=== PATIENT | female | born 1970 | race Caucasian/White ===

== ENCOUNTER 2020-03-10 20:18 | Emergency (ER) | payer SELFPAY ==
--- NOTE | 2020-03-10 20:15 | ECG_ITS ---
APPROVED REPORT Exam: Resting ECG HR:70 bpm ECG Measurements Heart Rate 70 AXES IN 190 P 32 QRSd 80 QRS 56 QT 398 T 68 QTc 429 <Conclusion> Normal sinus rhythm Low voltage QRS Borderline ECG Electronically signed by : Jose Francisco Villanueva, 03/14/2020 13:59:34
[2020-03-10 20:21] VITALS: BP 116/78; PULSE 73; RESP 18; TEMP 36.6; O2SAT 96; BMI 32.9
[2020-03-10 20:25] VITALS: BP 116/78; PULSE 75; RESP 18; O2SAT 96
--- NOTE | 2020-03-10 20:33 | XR_ITS ---
PROCEDURE: XR CHEST 2V CLINICAL HISTORY: chest pain COMPARISON: No exams were available for comparison FINDINGS: The cardiomediastinal silhouette and pulmonary vascularity are within normal limits. The lungs are clear without infiltrates, suspicious nodules, or pleural effusions. No acute bony abnormalities. IMPRESSION: No acute findings. Dictated by: Anuj Strickland MD 03/11/2020 07:40 Electronically signed by Anuj Strickland MD in [facility] 03/11/2020 07:40
--- NOTE | 2020-03-10 20:47 | CT_ITS ---
PROCEDURE: CT ABDOMEN PELVIS W CON CLINICAL INDICATION: epigatric pain Abdominal pain, epigastric pain COMPARISON: No exams were available for comparison TECHNIQUE: IV Contrast: 75ML OPTIRAY 350 Oral Contrast None Axial images obtained with sagittal and coronal reformats. All CT scans at the facility use one or more dose reduction, viz: automated exposure control, ma/kV adjustment per patient size (including targeted exams where dose is matched to indication, i.e. head), or iterative reconstruction technique. FINDINGS: LOWER THORAX: No acute finding ABDOMEN & PELVIS: Post cholecystectomy. The liver, spleen, right adrenal gland, and pancreas have an unremarkable appearance. No renal or ureteral calculi. No hydronephrosis. There is nodular enlargement of the left adrenal gland possibly due to adenomatous involvement. Unenhanced exam or MRI may confirm. No evidence of appendicitis. No intestinal obstruction or free air. There is prominent periuterine venous engorgement and may be seen with pelvic congestion syndrome. There are scattered colonic diverticula but no evidence of diverticulitis. IMPRESSION: 1. No acute finding. 2. Colonic diverticulosis without diverticulitis. 3. Prominent adnexal veins nonspecific but may be seen with pelvic congestion syndrome 4. Mildly enlarged left adrenal gland Dictated by: Anuj Strickland MD 03/11/2020 08:38 Electronically signed by Anuj Strickland MD in [facility] 03/11/2020 08:38
[2020-03-10 20:51] LABS: Basophils # 0.1 K/mm3 (0-0.2); Basophils % 0.6 % (0.1-2.0); Eosinophils # 0.3 K/mm3 (0.0-0.4); Eosinophils % 2.1 % (0.1-12.0); Hematocrit 39.4 % (37.0-47.0); Hemoglobin 13.9 g/dL (12.2-16.2); Lymphocytes # 3.1 K/mm3 (0.7-4.5); Lymphocytes % 23.9 % (10-50); Mean Corpuscular HGB Conc 35.3 g/dL (31.8-35.4); Mean Corpuscular Hemoglobin 32.7 pg (27.0-31.2); Mean Corpuscular Volume 92.5 fl (81-99); Mean Platelet Volume 8.2 fl (7.4-10.4); Monocytes # 0.6 K/mm3 (0.1-1.0); Monocytes % 4.2 % (1.7-9.3); Neutrophils # 9.1 K/mm3 (1.8-7.8); Neutrophils % 69.2 % (37.0-80.0); Platelet Count 305 K/mm3 (142-424); Red Blood Count 4.26 M/mm3 (4.20-5.40); Red Cell Distribution Width 13.9 % (11.5-17.5); White Blood Count 13.1 K/mm3 (4.8-10.8)
[2020-03-10 20:54] LABS: Chloride 110 mmol/L (98-107); Potassium 3.4 mmoL/L (3.5-5.1); Sodium 138 mmol/L (136-145)
[2020-03-10 20:57] LABS: Alanine Aminotransferase 36 U/L (12-78); Albumin Level 3.9 g/dl (3.5-5.0); Alkaline Phosphatase 99 U/L (38-126); Amylase 58 U/L (30-110); Anion Gap 11.4 mEq/L (5-15); Aspartate Amino Transferase 30 U/L (14-36); Bilirubin,Direct 0.1 mg/dl (0.0-0.4); Bilirubin,Indirect 0.3 mg/dL (0.0-0.9); Bilirubin,Total 0.4 mg/dl (0.2-1.3); Bilirubin,Unconjugated 0.2 mg/dL (0.0-1.1); Blood Urea Nitrogen 12 mg/dl (7-17); Calcium 9.6 mg/dl (8.4-10.2); Carbon Dioxide 20 mmol/L (22.0-30.0); Creatinine Clearance Estimated 123 mL/min (50-200); Estimated Glomerular Filt Rate 88 ml/min (>60); GFR (African American) 107 ML/MIN (>60); Glucose 118 mg/dl (74-100); Lipase 57 U/L (23-300); Total Protein,Serum 7.3 g/dl (6.3-8.2)
--- NOTE | 2020-03-10 21:03 | CT_ITS ---
PROCEDURE: CT HEAD/BRAIN WO CON CLINICAL INDICATION: dizzieness Dizziness COMPARISON: No exams were available for comparison TECHNIQUE: Axial images obtained. All CT scans at the facility use one or more dose reduction, viz: automated exposure control, ma/kV adjustment per patient size (including targeted exams where dose is matched to indication, i.e. head), or iterative reconstruction technique. FINDINGS: No midline shift, mass effect, intracranial hemorrhage, hydrocephalus, or extra-axial fluid collection is evident. The calvarium has an unremarkable appearance. Minimal opacification right posterior mastoid air cell. No sinus air-fluid level. IMPRESSION: No acute intracranial finding Dictated by: Anuj Strickland MD 03/11/2020 08:33 Electronically signed by Anuj Strickland MD in [facility] 03/11/2020 08:33
--- NOTE | 2020-03-10 21:05 | CT_ITS ---
PROCEDURE: CT ANGIO CHEST CLINCIAL INDICATION: chest pain Chest pain with shortness of breath, smoker COMPARISON: No exams were available for comparison TECHNIQUE: IV Contrast: 70ML OPTIRAY 350 Axial images obtained with sagittal and coronal reformats. All CT scans at the facility use one or more dose reduction, viz: automated exposure control, ma/kV adjustment per patient size (including targeted exams where dose is matched to indication, i.e. head), or iterative reconstruction technique. FINDINGS: HEART AND MEDIASTINAL STRUCTURES: No evidence of pulmonary embolus aortic aneurysm or dissection. LUNGS AND PLEURAL SPACES: In the right apex there is an 8 mm noncalcified nodule and a 5 mm noncalcified nodule. There is a subpleural 4 mm nodule in the left apex and a 4 mm nodule in the left upper lobe centrally image 25 series 4. There are few calcified nodules as well. There is mild atelectatic change in the lung bases. 5 mm subpleural opacity is present in the major fissure on the left. 3 mm noncalcified nodule left upper lobe posteriorly image 22 series 4. No effusions. No lobar consolidation BONY STRUCTURES: No acute bony abnormalities apparent. UPPER ABDOMEN: Enlargement of the left adrenal gland is noted and may be due to adenomatous involvement incompletely imaged ADDITIONAL FINDINGS: There are few scattered small axillary lymph nodes IMPRESSION: 1. No evidence of pulmonary embolus or aortic aneurysm or dissection. 2. Scattered pulmonary nodules as detailed above the largest in the right apex at 8 mm. Recommend six-month follow-up Dictated by: Anuj Strickland MD 03/11/2020 08:31 Electronically signed by Anuj Strickland MD in [facility] 03/11/2020 08:31
--- NOTE | 2020-03-10 21:07 | PC.NURSE ---
pt had no relief from nitro
[2020-03-10 21:11] LABS: Troponin I 0.03 ng/ml (0.00-0.034)
[2020-03-10 21:31] LABS: Erythrocyte Sedimentation Rate 70 mm/hr (0-30)
[2020-03-10 21:43] VITALS: BP 133/87; PULSE 84; RESP 18; O2SAT 98
--- NOTE | 2020-03-10 21:48 | [facility].EDCP ---
ED Disposition Clinical Impression: Elevated erythrocyte sedimentation rate, Obesity (BMI 30.0-34.9) Chest pain Qualifiers: Chest pain type: precordial pain Qualified Code(s): R07.2 - Precordial pain Disposition: Home, Self-Care Condition on Discharge: Good Instructions: DI for Chest Pain Additional Instructions: see card this week for follow up and also pcp Referrals: Provider,Referral, MD [Primary Care Provider] - - Critical Care Critical Care Time: No Attestation: On , the high probability of a clinically significant, sudden or life threatening deterioration of the following system(s) required my full and direct attention, intervention and personal management. The time I documented below is in addition to time spent performing reported procedures but includes the following listed in this critical care notation. Medical Decision Making - Medical Records Medical records reviewed: Yes: I reviewed the patient's medical records. - [place] Inquiry Pt receiving controlled substance: No Vital Signs: 03/10/20 20:21 03/10/20 20:25 03/10/20 21:43 Temperature 97.9 F Temperature Source Oral Pulse Rate [Left Radial] 75 84 Pulse Rate [Right] 73 Respiratory Rate 18 18 18 Blood Pressure [Right Arm] 116/78 116/78 133/87 Blood Pressure Mean [Right Arm] 90 90 102 Blood Pressure Source [Right Arm] Automatic Cuff Blood Pressure Position [Right Arm] Supine 02 Sat by Pulse Oximetry 96 96 98 Oxygen Delivery Method Room Air Room Air Room Air 03/10/20 22:32 03/10/20 23:05 Temperature Temperature Source Pulse Rate [Left Radial] 68 75 Pulse Rate [Right] Respiratory Rate 18 18 Blood Pressure [Right Arm] 126/87 145/74 H Blood Pressure Mean [Right Arm] 100 97 Blood Pressure Source [Right Arm] Blood Pressure Position [Right Arm] 02 Sat by Pulse Oximetry 93 L 95 Oxygen Delivery Method Room Air Room Air - Lab Data Lab results reviewed: Yes: I reviewed the patient's lab results. Lab Results 03/10/20 20:43: WBC 13.1 H, RBC 4.26, Hgb 13.9, Hct 39.4, MCV 92.5, MCH 32.7 H, MCHC 35.3, RDW 13.9, Plt Count 305, MPV 8.2, Neut % (Auto) 69.2, Lymph % (Auto) 23.9, [place] % (Auto) 4.2, Eos % (Auto) 2.1, Baso % (Auto) 0.6, Neut # (Auto) 9.1 H, Lymph # (Auto) 3.1, [place] # (Auto) 0.6, Eos # (Auto) 0.3, Baso # (Auto) 0.1, ESR 70 H 03/10/20 20:43: Sodium 138, Potassium 3.4 L, Chloride 110 H, Carbon Dioxide 20 L, Anion Gap 11.4, BUN 12, Creatinine 0.70, Estimated Creat Clear 123, Estimated GFR 88, Est GFR ( Amer) 107, Glucose 118 H, Calcium 9.6, Total Bilirubin 0.4, Direct Bilirubin 0.1, Conjugated Bilirubin 0.0, Indirect Bilirubin 0.3, Unconjugated Bilirubin 0.2, AST 30, ALT 36, Alkaline Phosphatase 99, Troponin I 0.03, C-Reactive Protein 9.0 H, Total Protein 7.3, Albumin 3.9, Amylase 58, Lipase 57 Result diagrams: 03/10/20 20:43 03/10/20 20:43 Orders (Tests/Meds): ED MEDICATIONS Generic Name Dose Route Start Last Admin Trade Name Freq PRN Reason Stop Dose Admin Sodium Chloride 1,000 mls @ 999 mls/hr 03/10/20 20:45 03/10/20 20:46 Sod Chlor 0.9% 1000ml Bag IV 03/10/20 21:45 999 mls/hr .Q1H1M FAUSTINO Administration Sodium Chloride 8 ml 03/10/20 20:47 Sodium Chloride 0.9% 10ml Vial IV 04/09/20 20:46 NEEDED PRN dilute pepcid Discontinued Medications Generic Name Dose Route Start Last Admin Trade Name Freq PRN Reason Stop Dose Admin Aspirin 324 mg 03/10/20 20:33 03/10/20 20:45 Aspirin 81mg Chewable Tablet PO 03/10/20 20:34 324 mg ONCE ONE Administration Famotidine 20 mg 03/10/20 20:47 03/10/20 20:51 Pepcid 20mg/2ml Vial IV 03/10/20 20:48 20 mg ONCE ONE Administration Ioversol 70 ml 03/10/20 21:42 03/10/20 21:43 Rad-Optiray 350 100ml Vial IV 03/10/20 21:43 70 ml ONCE ONE Administration Protocol Ketorolac Tromethamine 30 mg 03/10/20 20:47 03/10/20 20:51 Toradol 30mg/Ml Vial IV 03/10/20 20:48 30 mg ONCE ONE Administration M
[2020-03-10 22:32] VITALS: BP 126/87; PULSE 68; RESP 18; O2SAT 93
[2020-03-10 23:05] VITALS: BP 145/74; PULSE 75; RESP 18; O2SAT 95
[2020-03-11 00:13] LABS: Troponin I 0.48 ng/ml (0.00-0.034)
--- NOTE | 2020-03-11 00:19 | PC.NURSE ---
at the bedside reviewing pt lab information
[2020-03-11 00:20] VITALS: BP 122/86; PULSE 73; RESP 18; O2SAT 98
--- NOTE | 2020-03-11 00:25 | PC.NURSE ---
This nurse entered the room to have pt sign ama papers, per pt request. MD present at the bedside and explained to pt the risks and dangers of leaving against medical advice at this time due to lab results discussed with pt. Signs and symptoms explained to patient about on going diagnosis. Advised pt to return with any new or worsening symptoms. Pt agreed to return at 0900 to cardiology per MD recommendation. Explained to pt that this condition could be lethal and after all instructions were discussed with pt, she still wanted to leave ama home. Pt does still want to leave and signed ama paperwork. Md also present for signature.
[2020-03-11 00:30] VITALS: BP 122/86; PULSE 73; RESP 18; TEMP 36.6; O2SAT 98
== END 2020-03-11 00:30 | disposition home or self-care (01) ==
PROVIDERS: Emergency Provider Emergency Medicine
DX: I21.4 Non-ST elevation (NSTEMI) myocardial infarction (principal); F17.210 Nicotine dependence, cigarettes, uncomplicated; E66.8 Other obesity; Z68.32 Body mass index [BMI] 32.0-32.9, adult; R70.0 Elevated erythrocyte sedimentation rate
CPT/HCPCS: 70450; 71046; 71275; 74177; 80048; 80076; 82150; 83690; 84484; 85025; 85651; 86140; 93005; 96365; 96375; 99284; J2405; Q9967

== ENCOUNTER → 2021-10-01 11:48 | Outpatient (CLI) | payer MEDICAID, SELFPAY ==
[2021-10-01 15:01] LABS: Basophils # 0.2 K/mm3 (0-0.2); Basophils % 1.7 % (0.1-2.0); Eosinophils # 0.4 K/mm3 (0.0-0.4); Eosinophils % 4.1 % (0.1-12.0); Hematocrit 44.8 % (37.0-47.0); Hemoglobin 14.9 g/dL (12.2-16.2); Lymphocytes # 3.6 K/mm3 (0.7-4.5); Lymphocytes % 37.7 % (10-50); Mean Corpuscular HGB Conc 33.4 g/dL (31.8-35.4); Mean Corpuscular Hemoglobin 31.7 pg (27.0-31.2); Mean Corpuscular Volume 94.9 fl (81-99); Mean Platelet Volume 9.6 fl (7.4-10.4); Monocytes # 0.4 K/mm3 (0.1-1.0); Monocytes % 4.4 % (1.7-9.3); Neutrophils % 52.2 % (37.0-80.0); Platelet Count 399 K/mm3 (142-424); Red Blood Count 4.72 M/mm3 (4.20-5.40); Red Cell Distribution Width 13.7 % (11.5-17.5); White Blood Count 9.5 K/mm3 (4.8-10.8)
[2021-10-01 15:48] LABS: Anion Gap 12.6 mEq/L (5-15); Blood Urea Nitrogen 12 mg/dl (7-17); Calcium 9.7 mg/dl (8.4-10.2); Carbon Dioxide 28 mmol/L (22.0-30.0); Chloride 102 mmol/L (98-107); Estimated Glomerular Filt Rate 88 ml/min (>60); GFR (African American) 106 ML/MIN (>60); Glucose 86 mg/dl (74-100); Potassium 4.6 mmoL/L (3.5-5.1); Sodium 138 mmol/L (136-145)
== END ==
PROVIDERS: PCP Family Medicine; Visit Provider Physician Assistant
DX: Z01.812 Encounter for preprocedural laboratory examination (principal); Z11.52 Encounter for screening for COVID-19; R06.02 Shortness of breath; I20.0 Unstable angina; I10 Essential (primary) hypertension; I25.2 Old myocardial infarction; I63.9 Cerebral infarction, unspecified; F17.200 Nicotine dependence, unspecified, uncomplicated; E66.9 Obesity, unspecified; Z68.34 Body mass index [BMI] 34.0-34.9, adult
CPT/HCPCS: 36415; 80048; 85025; C9803; U0003; U0005

== ENCOUNTER 2021-10-03 08:20 | Day surgery (SDC) | payer MEDICAID, SELFPAY ==
[2021-10-03] VITALS (12 sets, daily range): BP systolic 108–159; BP diastolic 78–109; PULSE 75–91; RESP 16–20; TEMP 36.7–37; O2SAT 90–97; BMI 34.4
--- NOTE | 2021-10-03 07:06 | IR_ITS ---
APPROVED REPORT Patient Location: Outpatient PROCEDURES Left heart catheterization Left ventriculogram Selective coronary angiogram INDICATION Recent non-ST elevation myocardial infarction, Coronary artery disease, Recurrent angina pectoris Informed consent was obtained prior to the procedure. COMPLICATIONS NONE Estimated Blood Loss: LESS THAN 10 ML TECHNIQUE One percent lidocaine used to anesthetize the right anterior aspect of the wrist. The right radial artery was accessed via the Seldinger technique. A 6 Bulgarian sheath was placed in the right radial artery. 2.5 mg of verapamil, 800 mcg of nitroglycerin, 1mg Lidocaine and 5000 U Heparin were given through the arterial sheath. The ViClonepa catheter was also used to perform left heart catheterization, left ventriculogram and selective coronary angiogram. At the end of the procedure the apparatus was removed the sheath was removed and hemostasis was achieved using TR banding patient was transferred to the postop holding area in stable condition ANGIOGRAPHIC RESULTS The left main artery Normal The left anterior descending artery Has mild proximal and mid vessel 10% luminal irregularities The circumflex artery Is a dominant vessel and has mid vessel 20 and 30% stenoses. The distal obtuse marginal artery branches have 30 and 40% stenosis a bifurcating area is. The right coronary artery Is nondominant and subtotally occluded in the midsegment and distally occluded. There are scant [id number] collaterals The BAIRD ventriculogram reveals Normal slightly hyperdynamic at 70% The left ventricular end-diastolic pressure 10 mmHg IMPRESSION Coronary disease as described above most notably with a chronically occluded right coronary artery which fills via [id number] collaterals Normal slightly hyperdynamic ventricle Normal left ventricular end-diastolic pressure PLAN 1. Maximize antianginals with specific attention at slowing heart rate. This should be achieved with beta-blockers and possibly combined with diltiazem or verapamil 2. LDL less than 55 3. And an uptitrate long-acting nitrates 4. Risk factor modification 5. Avoidance of tobacco products Electronically signed by : Rosendo Zhong MD 10/03/2021 11:43:00
--- NOTE | 2021-10-03 10:13 | CA_ITS ---
APPROVED REPORT EXAM: Comprehensive 2D, Doppler, and color-flow Echocardiogram Spot Billing Clerk: Ivonne Bill RVT Ht: 5 ft 4 in Wt: 201lbs BSA: 1.96 BP: 119/83 mmHg Indications: CP,CAD,SMOKER,OBESITY 2D Dimensions LVOT 1.95 cm (M/F) 1.5-2.5 LA Volume 20.90 mL LA Volume Index 10.66 mL/m2 (M/F) 16-34 M-Mode Dimensions RVDd 2.13 cm (0.9-2.6) LA Diam 2.83 cm (1.9-4.0) LVDd 3.05 cm (3.5-5.7) Ao Diam 2.64 cm (2.0-3.7) LVDs 2.09 cm (3.5-5.7) IVSd 1.41 cm (0.6-1.1) PWd 1.20 cm (0.6-1.1) EF (Teich) 61.00% FS 31.50% EDV (Teich) 36.40 mL TAPSE 1.45 (<1.7) ESV (Teich) 14.20 mL LV Diastology E Decel Time 173.00 (160-240 msec) E/A Ratio 0.9 MED E' 5.10 (< 7 cm/sec) E'/MED E' Ratio 12.86 (>14) LAT E' 7.20 (<10 cm/sec) E/LAT E' Ratio 9.11 (>14) Mitral Valve MV E Max Lennox. 66.00 (40-130 cm/s) MV A Velocity 74.00 (40-130 cm/s) E/A Ratio 0.88 MV Decel. Time 173.00 (160-240 ms) MV PHT 51.00 ms Pulmonary Valve PV Peak Velocity 58.00 (50-150 cm/s) Tricuspid Valve TR P. Velocity 177.00 cm/s RAP Estimate 10.00 mmHg RVSP 22.60 mmHg Left Ventricle Left atrium is mildly enlarged, left ventricle is normal size, mild concentric left ventricular hypertrophy, visually estimated ejection fraction 55% with no regional wall motion abnormality, endocardial surfaces are poorly visualized, grade 1 diastolic dysfunction seen without tissue Doppler evidence of raise left atrial pressure. Right Ventricle Right atrium and right ventricle are qualitatively mildly enlarged with normal contractility. Aortic valve is minimally thickened and fibrosed, there is no aortic stenosis or aortic insufficiency. Mitral Valve Mitral valve grossly normal, there is trace mitral regurgitation. Tricuspid Valve Tricuspid valve grossly normal, there is trace tricuspid regurgitation, tricuspid regurgitation jet velocity is inadequate for calculation of the right ventricular systolic pressure. Pulmonic Valve Pulmonic valve is poorly visualized. Great Vessels Aortic root is normal size. Inferior vena cava is poorly visualized. Pericardium No significant pericardial effusion noted. Conclusion 1. Mild biatrial enlargement, normal left ventricular size, mild concentric left ventricular hypertrophy, visually estimated ejection fraction 55% with no regional wall motion abnormality, grade 1 diastolic dysfunction seen without tissue Doppler evidence of raise left atrial pressure. 2. Mildly enlarged right ventricle with normal contractility. 3. Trace mitral and tricuspid regurgitation. 4. No significant pericardial effusion noted. 5. Inferior vena cava is poorly visualized. Electronically signed by : Ino Mcnally MD 10/03/2021 17:22:55
== END 2021-10-03 14:05 | disposition home or self-care (01) ==
LOC: CATHLAB 08:22
PROVIDERS: PCP Family Medicine; Visit Provider Internal Medicine
DX: I25.110 Atherosclerotic heart disease of native coronary artery with unstable angina pectoris (principal); F17.210 Nicotine dependence, cigarettes, uncomplicated; I25.2 Old myocardial infarction; I25.82 Chronic total occlusion of coronary artery
CPT/HCPCS: 93306; 93458; 99152; C1725; C1769; J1644; Q9967